=== PATIENT | male | born 1995 ===

== ENCOUNTER → 2017-09-13 | Outpatient (CLI) | payer OTHER | END | disposition home or self-care (01) | LOC: C.RDSM 13:27 | PROVIDERS: ATTEND Physical Medicine & Rehabilitation | DX: M25.572 Pain in left ankle and joints of left foot (principal) ==

== ENCOUNTER → 2017-12-20 | Outpatient (CLI) | payer OTHER ==
--- NOTE | 2017-12-20 15:36 | DIAGNOSTIC IMAGING REPORT ---
CHEST 2 VIEWS ROUTINE HISTORY: DYSPNEA COMPARISON: None. FINDINGS: The lungs are clear. Cardiac silhouette is normal in size. No pleural effusions. No pneumothorax. IMPRESSION: No acute process. Electronically signed by: Eliot Pleitez M.D. 12/20/2017 3:35 PM Dictated Date/Time: 12/20/2017 3:34 PM
== END | disposition home or self-care (01) ==
LOC: C.RDSM 15:17
PROVIDERS: ATTEND Physical Medicine & Rehabilitation
DX: Z87.09 Personal history of other diseases of the respiratory system (principal); R06.00 Dyspnea, unspecified